=== PATIENT | female | born 1940 | race Caucasian/White ===

== ENCOUNTER 2025-06-11 10:23 | Emergency (ER) | payer MEDICARE, SELFPAY ==
--- NOTE | ~2025-06-11 | XR_ITS ---
EXAMINATION: XR WRIST, RIGHT CLINICAL INFORMATION: fall, ecchymosis COMPARISON: None available. TECHNIQUE: PA, lateral, and oblique views of the right wrist. FINDINGS: There is subtle cortical buckling along the medial metaphysis of the radius/radial styloid, questionable for nondisplaced fracture. 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 There is diffuse chondrocalcinosis within the wrist and TFCC. Severe osteoarthrosis of the STT joints. Moderate osteoarthrosis of the first CMC joint. There is diffuse soft tissue swelling around the wrist. XR/XR wrist RT min 3V IMPRESSION: 1. Findings suspicious but not definitive for a distal radial metaphyseal fracture. A CT may be of benefit to definitively exclude. 2. Chondrocalcinosis and arthritic changes in the wrist as detailed. 3. Diffuse soft tissue swelling. Electronically signed by: Akash Bird MD 06/11/2025 12:31 PM [facility]
--- NOTE | ~2025-06-11 | CT_ITS ---
EXAMINATION: CT CERVICAL SPINE WITHOUT CONTRAST CLINICAL INFORMATION: Fall COMPARISON: None available. TECHNIQUE: Axial imaging was performed from the base of the skull through T2 without IV contrast. Coronal and sagittal reformatted images were generated from the original axial data set. ALARA: The examination used one or more of the following radiation dose reduction techniques: Automated exposure control, iterative reconstruction, and/or adjustment of mA and/or KV. FINDINGS: Paraseptal bleb with a 7 x 11 mm soft tissue nodule is noted in the posterior right apex. There is no prevertebral edema. There is faint calcific density in the cruciate ligament dens consistent with chondrocalcinosis. No fracture lines are identified. C2-C3: Disc bulge C3-C4: There is mild disc space narrowing and disc bulge with uncovertebral and facet osteophytes, more pronounced on the left. C4-C5: There is moderate loss of disc height with uncovertebral and facet osteophytes, more pronounced on the left. C5-C6: There is grade 1 anterolisthesis with mild disc space narrowing. There are uncovertebral and facet osteophytes are more advanced on the left. C6-7: There is subtle anterolisthesis with mild disc space narrowing. There are uncovertebral and facet osteophytes more pronounced on the left. C7-T1: There is grade 1 anterolisthesis and mild disc space narrowing. There are uncovertebral and facet osteophytes. CT/CT cervical spine wo IV con IMPRESSION: Paraseptal bleb with adjacent 7 x 11 mm soft tissue nodule in the posterior right apex of the lung. Fleischner Society recommendation states CT chest without contrast in 3 month, PET/CT, or tissue sampling. Given the nodule is adjacent to a bleb, could represent scarring. Also, the entire lung has not been imaged, only the lung apexes. The best next step would likely be follow-up CT chest without contrast within 3 months to determine if there are any other changes. No acute fracture. Degenerative disc disease and facet osteoarthritis. Electronically signed by: Raulito Salazar MD 06/11/2025 11:58 AM EST
--- NOTE | ~2025-06-11 | XR_ITS ---
EXAMINATION: XR LUMBOSACRAL SPINE CLINICAL INFORMATION: fall COMPARISON: None available. TECHNIQUE: AP and lateral views FINDINGS: Levoconvex rotoscoliosis apex at L3. Multilevel marginal osteophyte formation and endplate sclerosis with decreased intervertebral disc height pronounced at L4-5. Superior endplate compression deformity likely old representing 20% volume loss at L2 and L3 vertebra. Osteopenia versus the process. No acute cortical disruption or gross malalignment. Vascular calcifications. XR/XR lumbar spine 2-3V IMPRESSION: Multilevel thoracolumbar spondylosis and levoconvex rotoscoliosis apex at L3 without acute fracture or listhesis. Electronically signed by: Kan Wilcox MD 06/11/2025 12:34 PM [facility]
--- NOTE | ~2025-06-11 | XR_ITS ---
EXAMINATION: XR HAND, RIGHT CLINICAL INFORMATION: ecchymosis/fall. fracture COMPARISON: None available. TECHNIQUE: PA, lateral, and oblique views of the right hand. FINDINGS: There is central erosion and mild narrowing of the DIP joint of the third digit. There is also mild joint space narrowing involving the second and fourth DIP joints. There are marginal osteophytes involving second, third, and fourth DIP joints. Small marginal osteophytes are present at the third, fourth, and fifth PIP joints. There is sclerosis and osteophytes involving the first MCP joint. There is sclerosis, joint space narrowing, and marginal sites involving the STT joint. There is chondrocalcinosis involving triangular fibrocartilage complex. No acute abnormality is identified. 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 No acute abnormality is evident. Electronically signed by: Raulito Salazar MD 06/11/2025 12:23 PM [facility]
--- NOTE | ~2025-06-11 | XR_ITS ---
EXAMINATION: XR SACRUM AND COCCYX CLINICAL INFORMATION: fall COMPARISON: None available. TECHNIQUE: AP and lateral sacrum and coccyx FINDINGS: There is mild to moderate narrowing and subchondral sclerosis involving the SI joints. There are marginal sites. There is moderate degenerative change in the pubic symphysis joint with chondrocalcinosis and marginal osteophytes. Severe degenerative changes are present in the lower lumbar spine with disc space narrowing, endplate sclerosis and osteophytes, as well as facet sclerosis and osteophytes. XR/XR sacrum coccyx min 2V IMPRESSION: Degenerative changes, no acute abnormality was detected. There is persistent high suspicion, consider cross-sectional imaging. Electronically signed by: Raulito Salazar MD 06/11/2025 12:26 PM [facility]
--- NOTE | ~2025-06-11 | CT_ITS ---
EXAMINATION: CT HEAD WITHOUT CONTRAST CLINICAL INFORMATION: fall COMPARISON: None available. TECHNIQUE: Contiguous axial imaging was performed from the skull base to vertex without intravenous administration of contrast. This CT examination was performed using dose optimization techniques as appropriate, variously including the following: *Automated exposure control *Adjustment of mA and/or kV according to patient size (this includes techniques or standardized protocols for targeted exams where dose is matched to indication/reason for exam; i.e. extremities or head) *Use of iterative reconstruction technique DLP: 706.60 mGy-cm FINDINGS: No acute cortical disruption in the bony calvarium or the included skull base. No acute intracranial hemorrhage, mass effect, midline shift, hydrocephalus or herniation. Yap-white matter differentiation is normal. Prominence of the extra-axial CSF spaces cerebral sulci and ventricles likely central volume loss. Posterior cranial fossa contents demonstrated no acute hemorrhage or mass effect. Normal position of the cerebellar tonsils. Sellar/suprasellar region demonstrated no gross masses. Poor pneumatization of the right mastoid air cells. Tympanic cavities are aerated. Pneumatized petrous apices, congenital. Nuchal subtle thickening in the paranasal sinuses without air-fluid levels. Calcified plaques in the cavernous supracavernous segments both ICAs and V4 segments of the vertebral arteries. CT/CT head/brain wo IV con IMPRESSION: No acute fracture, bony calvarium. No acute intracranial hemorrhage. Electronically signed by: Kan Wilcox MD 06/11/2025 11:54 AM [facility] [place], [place]
[2025-06-11 10:41] VITALS: BP 136/79; PULSE 90; RESP 18; TEMP 37; O2SAT 95; BMI 21.0
--- NOTE | 2025-06-11 10:46 | ED_ITS ---
HPI - General Adult General Chief complaint: Extremity Injury, Upper Stated complaint: Fell, R wrist inj Time Seen by Provider: 06/11/25 12:10 Source: patient and family (patient's daughter) Mode of arrival: ambulatory Limitations: no limitations History of Present Illness ED Provider: Dayanna Gilmore PA-C HPI narrative: Patient is an 84 year old assigned female at with no reported medical history presenting to the emergency department today with right wrist pain after a fall. Patient states that she slipped on the black ice and injured her right wrist. Patient denies any head strike or loss of consciousness with the incident. Patient denies any anti-coagulation use. Related Data Allergies Allergy/AdvReac Type Severity Reaction Status Date / Time No Known Allergies Allergy Verified 06/11/25 10:43 Review of Systems Constitutional: Constitutional: Reports as per HPI Eyes: Eyes: Reports as per HPI ENT: Reports as per HPI Cardiovascular: Cardiovascular: Reports as per HPI Respiratory: Respiratory: Reports as per HPI Gastrointestinal: Gastrointestinal: Reports as per HPI Genitourinary: Genitourinary: Reports as per HPI Musculoskeletal: Musculoskeletal: Reports as per HPI Integumentary/Breasts: Skin/Breast: Reports as per HPI Neurologic: Reports as per HPI Psychiatric: Psychiatric: Reports as per HPI Endocrine: Endocrine: Reports as per HPI Hematologic/Lymphatic: Hematologic/Lymphatic: Reports as per HPI Allergic/Immunologic: Allergic/Immunologic: Reports as per HPI PMF Past Medical History Attestation statement: The following information was validated with the patient. (all information validated with the patient's daughter) Source: old records reviewed, obtained from family (patient's daughter provided additional history and confirmed the history provided by the patient.) and nursing notes reviewed Social History Social History Smoked in Last 30 Days: No Use of substances other than those prescribed or required for medical reasons: No Advance Directives: Yes Advance Directives Information Provided: No Advance Directives on File: No Do you have a plan to hurt others: No Plan Physical Exam ED Vital Signs: Vital Signs - 24 hr 06/11/25 10:41 06/11/25 13:25 Temperature 98.6 F 98.6 F Pulse Rate 90 90 Respiratory Rate 18 18 Blood Pressure 136/79 136/79 Pulse Oximetry 95 95 Oxygen Delivery Method Room Air Room Air BMI result Body Mass Index 21.0 Const General: cooperative, no acute distress, alert and awake Nutritional Appearance: well nourished Orientation/consciousness: patient oriented x3 HENMT Head: Yes normal to inspection and Yes atraumatic Ears: hearing grossly normal bilaterally and external ears normal General nose exam: Normal external nose present, no nasal discharge noted and no epistaxis Face and sinus: Yes normal facial exam, No abrasion and No laceration Mouth: Normal oral and palatal mucosa present, no drooling and no muffled voice Eyes General: appearance normal, both eyes and all related structures Periorbital: periorbital findings normal Eyelids: Yes eyelids normal Conjunctivae: conjunctivae normal Pupils: Equal, round and reactive pupils present EOM: EOMs intact bilaterally Neck Neck: Yes normal visual inspection and Yes full ROM Resp Effort & Inspection: normal respiratory effort and able to speak in complete sentences Neuro General: patient oriented x3, moves all extremities and CN's II-XI intact bilaterally Cranial nerves: Yes Equal, round and reactive pupils present Cognition (Neuro): normal cognition Extrem Other: decreased ROM of the right wrist secondary to pain swelling present to the right wrist dorsal bruising present to the right wrist General: Yes capillary refill normal Psych Appearance: grossly normal Mental Status: mental status grossly normal Affect: normal affect Attitude: cooperative Thought process: Normal thought process present Thought content: Normal thought content present Insight: Good insight present (Psych) Course Course Course Narrative: RME: 84-year-old female presents to ED for right wrist pain. Patient states this morning while walking she slipped on ice and fell onto her right wrist and buttock. Patient denies hitting head loss of consciousness. Physical exam positive for right wrist ecchymosis but patient is able to move wrist. Sent for x-ray of the back, wrist hand, and head CT scan. Procedures Orthopedic Splinting/Casting R wrist fracture: Side: right Upper Extremity Injury Location: wrist Upper Extremity Immobilizer: sling/shoulder immobilizer and sugar tong splint Medical Decision Making Medical Decision Making MDM Narrative: Patient is an 84 year old assigned female at with no reported medical history presenting to the emergency department today with right wrist pain after a fall. Patient's physical exam was as noted in the physical exam portion of this note. Patient's right hand x-ray showed no acute process. Patient's right wrist x-ray showed evidence of a distal radial fracture. Patient's lumbar spine x-ray ordered by the provider in triage showed no acute process. Patient's sacrum + coccyx x-ray ordered by the provider in triage showed no acute process. Patient's head CT ordered by the provider in triage showed no acute process. Patient's c-spine CT ordered by the provider in triage showed an incidental finding of a paraseptal bleb with adjacent 7x11mm soft tissue nodule in the posterior right apex of the lung for which the radiologist recommended a CT scan within the next 3 months. I explained my physical exam findings as well as all test results to the patient and the patient's daughter. I answered all questions asked by the patient and the patient's daughter. Patient's right wrist was placed in a sugar tong splint, without incident. Patient's PMS was intact prior to and after splint placement. Patient's right up per extremity was placed in a sling, without incident. Patient's PMS was intact prior to and after sling placement. I stressed the importance of the patient taking her medication as directed (either prescribed or as the over the counter packaging recommends). I stressed the importance of the patient following up with her primary care provider (especially about the incidental finding in her lung) as well as the orthopedic team for her wrist fracture. I stressed the importance of the patient returning to the emergency department immediately if her symptoms were to worsen or if she were to develop any dizziness, shortness of breath, difficulty breathing, chest pain, blurry vision, loss of vision, nausea, vomiting, abdominal pain, fever, chills, back pain, or any other complaints. Patient and the patient's daughter verbalized agreement and understanding with this treatment plan and discharge. Differential Diagnosis Differential Diagnoses: The differential diagnosis associated with the presentation includes Right wrist fracture Fall Incidental lung finding Admission/Observation Consideration of admission/observation: Escalation of care including admission/observation considered Patient would have been admitted to the hospital had her work up had any findings where hospital admission was appropriate and her clinical presentation warranted hospital admission. Independent Interpretation I performed an independent interpretation of an: Plain X-Ray and CT Scan Interpretation: My interpretation is in agreement with the radiologist's impression of these imaging studies. Report Number: [id number]: Total DLP = 0.00 mGy-cm Reason for Exam: fall EXAMINATION: CT CERVICAL SPINE WITHOUT CONTRAST CLINICAL INFORMATION: Fall COMPARISON: None available. TECHNIQUE: Axial imaging was performed from the base of the skull through T2 without IV contrast. Coronal and sagittal reformatted images were generated from the original axial data set. ALARA: The examination used one or more of the following radiation dose reduction techniques: Automated exposure control, iterative reconstruction, and/or adjustment of mA and/or KV. FINDINGS: Paraseptal bleb with a 7 x 11 mm soft tissue nodule is noted in the posterior right apex. There is no prevertebral edema. There is faint calcific density in the cruciate ligament dens consistent with chondrocalcinosis. No fracture lines are identified. C2-C3: Disc bulge C3-C4: There is mild disc space narrowing and disc bulge with uncovertebral and facet osteophytes, more pronounced on the left. C4-C5: There is moderate loss of disc height with uncovertebral and facet osteophytes, more pronounced on the left. C5-C6: There is grade 1 anterolisthesis with mild disc space narrowing. There are uncovertebral and facet osteophytes are more advanced on the left. C6-7: There is subtle anterolisthesis with mild disc space narrowing. There are uncovertebral and facet osteophytes more pronounced on the left. C7-T1: There is grade 1 anterolisthesis and mild disc space narrowing. There are uncovertebral and facet osteophytes. CT/CT cervical spine wo IV con IMPRESSION: Paraseptal bleb with adjacent 7 x 11 mm soft tissue nodule in the posterior right apex of the lung. Fleischner Society recommendation states CT chest without contrast in 3 month, PET/CT, or tissue sampling. Given the nodule is adjacent to a bleb, could represent scarring. Also, the entire lung has not been imaged, only the lung apexes. The best next step would likely be follow-up CT chest without contrast within 3 months to determine if there are any other changes. No acute fracture. Degenerative disc disease and facet osteoarthritis. Electronically signed by: Raulito Salazar MD 06/11/2025 11:58 AM EST RP Dictated By: Raulito Salazar MD Signed By: Electronically signed by Raulito Salazar MD 06/11/25 1158 Reason for Exam: fall EXAMINATION: CT HEAD WITHOUT CONTRAST CLINICAL INFORMATION: fall COMPARISON: None available. TECHNIQUE: Contiguous axial imaging was performed from the skull base to vertex without intravenous administration of contrast. This CT examination was performed using dose optimization techniques as appropriate, variously including the following: *Automated exposure control *Adjustment of mA and/or kV according to patient size (this includes techniques or standardized protocols for targeted exams where dose is matched to indication/reason for exam; i.e. extremities or head) *Use of iterative reconstruction technique DLP: 706.60 mGy-cm FINDINGS: No acute cortical disruption in the bony calvarium or the included skull base. No acute intracranial hemorrhage, mass effect, midline shift, hydrocephalus or herniation. Yap-white matter differentiation is normal. Prominence of the extra-axial CSF spaces cerebral sulci and ventricles likely central volume loss. Posterior cranial fossa contents demonstrated no acute hemorrhage or mass effect. Normal position of the cerebellar tonsils. Sellar/suprasellar region demonstrated no gross masses. Poor pneumatization of the right mastoid air cells. Tympanic cavities are aerated. Pneumatized petrous apices, congenital. Nuchal subtle thickening in the paranasal sinuses without air-fluid levels. Calcified plaques in the cavernous supracavernous segments both ICAs and V4 segments of the vertebral arteries. CT/CT head/brain wo IV con IMPRESSION: No acute fracture, bony calvarium. No acute intracranial hemorrhage. Electronically signed by: Kan Wilcox MD 06/11/2025 11:54 AM EST RP Dictated By: Kan Hayes MD Signed By: Electronically signed by Kan Garvey MD 06/11/25 1154 Reason for Exam: fall EXAMINATION: XR WRIST, RIGHT CLINICAL INFORMATION: fall, ecchymosis COMPARISON: None available. TECHNIQUE: PA, lateral, and oblique views of the right wrist. FINDINGS: There is subtle cortical buckling along the medial metaphysis of the rad ius/radial styloid, questionable for nondisplaced fracture. 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 There is diffuse chondrocalcinosis within the wrist and TFCC. Severe osteoarthrosis of the STT joints. Moderate osteoarthrosis of the first CMC joint. There is diffuse soft tissue swelling around the wrist. XR/XR wrist RT min 3V IMPRESSION: 1. Findings suspicious but not definitive for a distal radial metaphyseal fracture. A CT may be of benefit to definitively exclude. 2. Chondrocalcinosis and arthritic changes in the wrist as detailed. 3. Diffuse soft tissue swelling. Electronically signed by: Akash Bird MD 06/11/2025 12:31 PM [facility] Dictated By: Akash Bird MD Signed By: Electronically signed by Akash Bird MD 06/11/25 1231 Reason for Exam: fall EXAMINATION: XR LUMBOSACRAL SPINE CLINICAL INFORMATION: fall COMPARISON: None available. TECHNIQUE: AP and lateral views FINDINGS: Levoconvex rotoscoliosis apex at L3. Multilevel marginal osteophyte formation and endplate sclerosis with decreased intervertebral disc height pronounced at L4-5. Superior endplate compression deformity likely old representing 20% volume loss at L2 and L3 vertebra. Osteopenia versus the process. No acute cortical disruption or gross malalignment. Vascular calcifications. XR/XR lumbar spine 2-3V IMPRESSION: Multilevel thoracolumbar spondylosis and levoconvex rotoscoliosis apex at L3 without acute fracture or listhesis. Electronically signed by: Kan Wilcox MD 06/11/2025 12:34 PM EST RP Dictated By: Kan Hayes MD Signed By: Electronically signed by Kan Garvey MD 06/11/25 1234 Reason for Exam: fall EXAMINATION: XR SACRUM AND COCCYX CLINICAL INFORMATION: fall COMPARISON: None available. TECHNIQUE: AP and lateral sacrum and coccyx FINDINGS: There is mild to moderate narrowing and subchondral sclerosis involving the SI joints. There are marginal sites. There is moderate degenerative change in the pubic symphysis joint with chondrocalcinosis and marginal osteophytes. Severe degenerative changes are present in the lower lumbar spine with disc space narrowing, endplate sclerosis and osteophytes, as well as facet sclerosis and osteophytes. XR/XR sacrum coccyx min 2V IMPRESSION: Degenerative changes, no acute abnormality was detected. There is persistent high suspicion, consider cross-sectional imaging. Electronically signed by: Raulito Salazar MD 06/11/2025 12:26 PM EST RP Dictated By: Raulito Salazar MD Signed By: Electronically signed by Raulito Salazar MD 06/11/25 1226 Reason for Exam: ecchymosis/fall. fracture EXAMINATION: XR HAND, RIGHT CLINICAL INFORMATION: ecchymosis/fall. fracture COMPARISON: None available. TECHNIQUE: PA, lateral, and oblique views of the right hand. FINDINGS: There is central erosion and mild narrowing of the DIP joint of the third digit. There is also mild joint space narrowing involving the second and fourth DIP joints. There are marginal osteophytes involving second, third, and fourth DIP joints. Small marginal osteophytes are present at the third, fourth, and fifth PIP joints. There is sclerosis and osteophytes involving the first MCP joint. There is sclerosis, joint space narrowing, and marginal sites involving the STT joint. There is chondrocalcinosis involving triangular fibrocartilage complex. No acute abnormality is identified. 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 No acute abnormality is evident. Electronically signed by: Raulito Salazar MD 06/11/2025 12:23 PM [facility] Dictated By: Raulito Salazar MD Signed By: Electronically signed by Raulito Salazar MD 06/11/25 1223 Radiology Impression Discussion of test interpretation with radiology: I have reviewed the radiologist's reading. Independent Historian Clinical information obtained from an independent historian. History obtained from or confirmed by: Other (patient's daughter provided additional history and confirmed the history provided by the patient. ) Discharge Plan Discharge Clinical Impression: Bleb, lung Fracture of wrist Qualifiers: Encounter type: initial encounter Fracture type: closed Laterality: right Qualified Code(s): S62.101A - Fracture of unspecified carpal bone, right wrist, initial encounter for closed fracture Patient Disposition: Home, Self-Care Instructions: Wrist Fracture in Adults (ED) Additional Instructions: Do NOT stick anything down / into your splint. Do NOT get your splint wet. Do NOT remove your splint. If you have any change in sensation, movement, or color of your right fingers - you may loosen the outer WINNIE wraps. If you find yourself loosening the WINNIE wraps to the point of seeing the white splint material underneath - STOP and proceed to your closest Emergency Department, immediately. Follow up with your primary care provider and the orthopedic team. ONLY wear your sling when ambulating and be sure every 1 hour for 10 minutes you move the right SHOULDER ONLY to avoid a frozen shoulder. Your imaging today showed an incidental finding of: Paraseptal bleb with adjacent 7 x 11 mm soft tissue nodule in the posterior right apex of the lung. The radiologist recommends getting a CT chest without contrast within the next 3 months. You MUST follow up with your primary care provider about this finding. Return to the emergency department immediately if your symptoms worsen or if you develop any numbness, tingling, dizziness, shortness of breath, difficulty breathing, chest pain, blurry vision, loss of vision, nausea, vomiting, abdominal pain, fever, chills, back pain, or any other complaints. Please see the information below about our Patient Portal. If you are not yet enrolled in the [facility] Patient Portal, you will receive an enrollment email invitation following your visit to any [facility] [place] care setting. You may also self-enroll in the Patient Portal by visiting our website: [email or web address] The following information is required to access the Patient Portal: - Your [facility] Medical Record Number - Your personal home email address (must match what is in your electronic medical record, Registration staff can assist with this) - Name - Date of Capabilities of the Patient Portal: - Message some providers - View upcoming appointments - Access your health summary, medical history, and visit history - View current conditions and allergies - View procedure and lab results - View your medications, including guidelines, side effects, and precautions - Complete pre-appointment questionnaires requested by your provider - Ready summary reports of your office visits and procedures To access the Patient Portal Mobile [employer], follow these directions: - Search [facility] in the [employer] Store or Google Play Store - Download the [place] - Search for [facility] - Enter your login/password Referrals: [facility] [Provider Group] Referral Note: Call to establish and follow up with the orthopedic team about your broken right wrist. Saira Baoteng MD [Primary Care Provider, Medical] Interventions: ED Discharge Assessment Last Done: 06/11/25 13:25 Discharge Date/Time: 06/11/25 13:42 Print Language: Tuvaluan
[2025-06-11 13:25] VITALS: BP 136/79; PULSE 90; RESP 18; TEMP 37; O2SAT 95
--- NOTE | 2025-06-11 13:41 | PC.NURSE ---
splint applied to RUE by provider. pt tolerated well.
== END 2025-06-11 13:42 | disposition home or self-care (01) ==
PROVIDERS: Emergency Provider Emergency Medicine; PCP Internal Medicine
DX: S62.101A Fracture of unspecified carpal bone, right wrist, initial encounter for closed fracture (principal); J43.9 Emphysema, unspecified; M25.531 Pain in right wrist; M54.2 Cervicalgia; R51.9 Headache, unspecified; M53.3 Sacrococcygeal disorders, not elsewhere classified; X58.XXXA Exposure to other specified factors, initial encounter; W00.0XXA Fall on same level due to ice and snow, initial encounter; Y93.29 Activity, other involving ice and snow; Y92.9 Unspecified place or not applicable; Y99.8 Other external cause status
CPT/HCPCS: 29125; 70450; 72100; 72125; 72220; 73110; 73130; 99284

== ENCOUNTER → 2025-06-11 10:44 | Outpatient (BNV) | payer MEDICARE, SELFPAY | PROVIDERS: Visit Provider Radiology Diagnostic Radiology | DX: M47.815 Spondylosis without myelopathy or radiculopathy, thoracolumbar region (principal); M41.86 Other forms of scoliosis, lumbar region; Z04.3 Encounter for examination and observation following other accident | CPT/HCPCS: 70450; 72100; 73110 ==

== ENCOUNTER 2025-06-19 08:29 | Outpatient (REF) | payer MEDICARE, SELFPAY ==
--- NOTE | ~2025-06-19 | XR_ITS ---
EXAMINATION: XR WRIST, RIGHT CLINICAL INFORMATION: M25.531 - Pain in right wrist COMPARISON: X-ray 08/11/2024 TECHNIQUE: PA, lateral, and oblique views of the right wrist. FINDINGS: Bone mineralization is decreased. Redemonstrated is subtle cortical buckling along the lateral metaphysis of the radius/radial styloid, along with subtle curvilinear sclerosis in the metaphysis extending to the epiphysis. These findings could represent sequela for undisplaced fracture. Redemonstrated CPPD calcification in the region of the TFCC. Redemonstrated severe STT arthritis, moderate first CMC arthritis. Intercarpal arthritis present. Mild soft tissue swelling.. XR/XR wrist RT min 3V IMPRESSION: 1. Findings suspicious for an undisplaced fracture of the distal radius. 2. Osteoarthritis as above. Electronically signed by: Spencer Holland MD 06/19/2025 04:15 PM [facility]
--- OUTSIDE RECORDS SUMMARY | 2025-06-20 08:53 | XMS_ITS | Patient Health Record ---
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 (107816326) Lichen sclerosus et atrophicus (L90.0) Active confirmed Plan Of Treatment No Information Insurance Providers Payer Name Payer Address Payer Phone Subscriber Number Group Number Insured Name Patient Relationship to Insured Coverage Start Date Coverage End Date MEDICARE [address] [facility], [place] [id number] ASHOK PARRA Self - patient is the insured MEDEX [address] [place] [address] [id number] ASHOK PARRA Self - patient is the insured Medical (General) History Medical History History ICD Code Pruritus vulvae L29.2 Lichen sclerosus et atrophicus L90.0 Surgical History Surgery Date(Month/Year) Appendectomy 1943 C/Section 1966 Lithotripsy 2004 Cataract 04/2020 Hospitalization History Reason Date(Month/Year) 1 C/S See Surgical History
== END 2025-06-19 08:30 | disposition home or self-care (01) ==
LOC: HO.HOSX 08:29
PROVIDERS: Visit Provider Orthopaedic Surgery
DX: S52.571D Other intraarticular fracture of lower end of right radius, subsequent encounter for closed fracture with routine healing (principal); W00.0XXD Fall on same level due to ice and snow, subsequent encounter
CPT/HCPCS: 25600; 73110; 99202

== ENCOUNTER 2025-06-19 09:56 | Outpatient (AMB) | payer MEDICARE, SELFPAY ==
[2025-06-19 10:07] VITALS: BMI 21.0
--- NOTE | 2025-06-19 10:07 | A.OFFVIS_ITS ---
Vital Signs 06/19/25 10:07 Height 5 ft 6 in Weight 130 lb BMI 21.0 Intake Visit Reasons: F/C RT distal Radius fx , FC-Distal radius fracture Intake Note: Trice 84 yr old right hand dominant female presents today for a fracture care visit for her right wrist fracture from DOI 06/11/25. Patient states that she slipped on the black ice and injured her right wrist. Patient was seen at [facility] where xrays were taken, a fracture was confirmed and patient was splinted. Today splint was removed and xrays were taken. Patient states she has no pain , numbness or tingling in her hand or fingers. Allergies No Known Allergies Allergy (Verified 06/19/25 10:35) HPI HPI F/C RT distal Radius fx : Details: Trice is an 84 year old right hand dominant woman who presents for a right distal radius fracture. She fell on ice, DOI: 06/11/25, and was seen in the ED & splinted. She says she is doing well overall. She has some pain in her wrist but this is tolerable. PFSH Surgical History (Updated 06/19/25 @ 10:36 by JAMAL Montana) Hx of cataract surgery Social History (Updated 06/19/25 @ 10:36 by JAMAL Montana) Current occupational status: retired Current occupation: rt hand Review of Systems Const All systems reviewed & are unremarkable except as noted in HPI and below Physical Exam Vital Signs: BMI result Body Mass Index 21.0 Const General: cooperative, healthy appearing and no acute distress Orientation/consciousness: patient oriented x3 HEENT Head: Yes normocephalic and Yes atraumatic Eyes EOM: EOMs intact bilaterally Resp Effort & Inspection: normal respiratory effort and able to speak in complete sentences Cardio Jugular venous distension: no JVD Skin General skin exam: turgor normal Rashes: no rashes Neuro General: patient oriented x3 Extrem Other: Evaluation of Right Upper Extremity: The patient is alert, oriented, and in no acute distress Neuro: Median, Ulnar, Radial nerves motor and sensory intact and sensation is normal to the tips of all digits Vascular: Cap refill brisk ROM: She can make a fist and extend all her digits Skin: No lacerations or abrasions or evidence of open injury General: No Erythema or evidence of infection. Ecchymosis about the wrist Most tender over the distal radius No tenderness over the distal ulna or DRUJ DRUJ stable on exam No snuffbox or scaphoid tubercle tenderness Radiographs: 3 views of the Right wrist were taken and viewed by me today in clinic. They show an intra-articular distal radius fracture, minimally displaced but overall satisfactory alignment. Psych Appearance: grossly normal Affect: normal affect Attitude: cooperative Office Procedures AMB Fracture Care Details: Still radius fracture 77046 Fracture Billing Code: Fracture Billing Code Assessment & Plan Assessment & Plan (1) Fracture of right distal radius: Code(s): S52.501A - Unspecified fracture of the lower end of right radius, initial encounter for closed fracture Category: Medical Plan Assessment & Plan: 1. Right distal radius fracture, minimally displaced From a fall, DOI: 05/11/25 I educated her about this condition I discussed operative and non-operative treatment options We will manage this non-operatively in a cast, and she is in agreement She was placed in a short arm cast, to be worn for the next 3 weeks She will work on gentle finger ROM exercises while in her cast I discussed activity modifications, she is to lift nothing heavier than a cellphone for the next 5 weeks. They should also avoid any heavy impact activities, falls, or sports activities for the next 8 weeks She will follow up in 3 weeks, with X-rays, 3V R wrist, OOP. Anticipate placement in velcro wrist splint Scribed for Kimmie Lamar MD by Preston Nicole clinical laboratory medical director, on 06/19/25 at 10:49 AM, EST. Orders: Orders XR wrist RT min 3V Today M25.531 - Pain in right wrist Coding Level of Care Code New Pt Level 4 (93108) Diagnoses Fracture of right distal radius S52.501A CPT Codes Fracture Care - Fracture Billing Code: Fracture Billing Code ([id number])
--- OUTSIDE RECORDS SUMMARY | 2025-06-19 11:54 | XMS_ITS | Patient Health Record ---
Author Organization Total [facility] Address [address] [place] [address] Care Team Providers Care Dispute Resolution Analyst Name Role Phone HO BARRAGAN Primary Care Provider Unavail able Scarlett Rush Unavailable [phone] Allergies No Known Allergies Reason For Referral No Information Medications Medication SIG (Take, Route, Frequency, Duration) Notes Start Date End Date Status Caltrate 600+D Activ e Centrum Silver - as directed Orally Active Clobetasol Propionate 0.05 % 1 application Externally Twice a day, morning and night; Duration: 30 days 04/03/2021 Active Social History Tobacco Use: Social History Observation Description Date Details (start date - stop date) Former Smoker NA - NA Tobacco Use/Smoking Question Answer Notes Are you a former smoker Alcohol Screen (Audit-C) Question Answer Notes Did you have a drink contain ing alcohol in the past year? Yes How often did you have a dri nk containing alcohol in the past year? 4 or more times a week (4 points) How many drinks did you have on a typical day when you were drinking in the past year? 1 or 2 drinks (0 point) Points 4 Interpretation Positive Sexual History Question Answer Notes Had sex in the past 12 months (vaginal, oral, or anal)? 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) Lichen sclerosus et atrophicus (L90.0) Active confirmed Plan Of Treatment No Information Insurance Providers Payer Name Payer Address Payer Phone Subscriber Number Group Number Insured Name Patient Relationship to Insured Coverage Start Date Coverage End Date MEDICARE [address] [facility], [place] [id number] [phone] [id number] ASHOK PARRA Self - patient is the insured MEDEX [address] [place] [address] [phone] [id number] ASHOK PARRA Self - patient is the insured Medical (General) History Medical History History ICD Code Pruritus vulvae L29.2 Lichen sclerosus et atrophicus L90.0 Surgical History Surgery Date(Month/Year) Appendectomy 1943 C/Section 1966 Lithotripsy 2004 Cataract 04/2020 Hospitalization History Reason Date(Month/Year) 1 C/S See Surgical History
== END 2025-06-19 11:37 | disposition home or self-care (01) ==
LOC: HO.HOS 09:57
PROVIDERS: PCP Internal Medicine; Visit Provider Orthopaedic Surgery
DX: S52.501A Unspecified fracture of the lower end of right radius, initial encounter for closed fracture (principal)
CPT/HCPCS: 25600; 99204

== ENCOUNTER → 2025-06-19 09:58 | Outpatient (BNV) | payer MEDICARE, SELFPAY | PROVIDERS: Visit Provider Radiology Diagnostic Ultrasound | DX: M19.031 Primary osteoarthritis, right wrist (principal) | CPT/HCPCS: 73110 ==

== ENCOUNTER 2025-07-10 11:42 | Outpatient (REF) | payer MEDICARE, SELFPAY ==
--- NOTE | ~2025-07-10 | XR_ITS ---
EXAMINATION: XR WRIST 3 OR MORE VIEWS RIGHT HISTORY: M25.531 - Pain in right wrist COMPARISON: Comparison is made with the prior examination dated 06/19/2025. FINDINGS: Three views of the right wrist are submitted. The bones are osteopenic. Again seen is a band of sclerosis across the distal radial metaphysis, compatible with a healing fracture. There is moderate to severe degenerative change of the radial aspect of the carpus. There is chondrocalcinosis. XR/XR wrist RT min 3V IMPRESSION: Healing fracture of the distal radial metaphysis. Electronically signed by: Ronn Goodwin MD 07/10/2025 01:48 PM [facility]
--- OUTSIDE RECORDS SUMMARY | 2025-07-12 15:26 | XMS_ITS | Patient Health Record ---
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 (915130301) Lichen sclerosus et atrophicus (L90.0) Active confirmed Plan Of Treatment No Information Insurance Providers Payer Name Payer Address Payer Phone Subscriber Number Group Number Insured Name Patient Relationship to Insured Coverage Start Date Coverage End Date MEDICARE [address] [facility], [place] [id number] ASHOK PARRA Self - patient is the insured MEDEX [address] [place] [address] [phone] [id number] ASHOK PARRA Self - patient is the insured Medical (General) History Medical History History ICD Code Pruritus vulvae L29.2 Lichen sclerosus et atrophicus L90.0 Surgical History Surgery Date(Month/Year) Appendectomy 1943 C/Section 1966 Lithotripsy 2004 Cataract 04/2020 Hospitalization History Reason Date(Month/Year) 1 C/S See Surgical History
== END 2025-07-10 11:43 | disposition home or self-care (01) ==
LOC: HO.HOSX 11:42
PROVIDERS: Visit Provider Orthopaedic Surgery
DX: S52.571D Other intraarticular fracture of lower end of right radius, subsequent encounter for closed fracture with routine healing (principal); W00.9XXD Unspecified fall due to ice and snow, subsequent encounter
CPT/HCPCS: 73110; 99212

== ENCOUNTER 2025-07-10 13:25 | Outpatient (AMB) | payer MEDICARE, SELFPAY ==
[2025-07-10 13:47] VITALS: BMI 21.0
--- NOTE | 2025-07-10 13:47 | MHC.OFFVIS ---
Vital Signs 07/10/25 13:47 Height 5 ft 6 in Weight 130 lb BMI 21.0 Intake Visit Reasons: OV- Distal radius fracture w xray/ cast off Intake Note: Trice 84 yr old right hand dominant female presents today for a fracture care visit for her right wrist fracture from DOI 06/11/25. Cast removefd and xrays updated in office, patient states she has sorness and aches in her wrist. Denies numbness or tingling. Allergies No Known Allergies Allergy (Verified 07/10/25 13:48) HPI HPI OV- Distal radius fracture w xray/ cast off: Details: Trice is an 84 year old right hand dominant woman who returns for a right distal radius fracture. She fell on ice, DOI: 06/11/25, and was seen in the ED & splinted. She says she is doing well overall. She has some pain in her wrist but this is tolerable. PFSH Surgical History Hx of cataract surgery Social History Current occupational status: retired Current occupation: rt hand Review of Systems Const All systems reviewed & are unremarkable except as noted in HPI and below Physical Exam Vital Signs: BMI result Body Mass Index 21.0 Const General: no acute distress and alert Orientation/consciousness: patient oriented x3 Neuro General: patient oriented x3 Extrem Other: Evaluation of Right Upper Extremity: The patient is alert, oriented, and in no acute distress Neuro: Median, Ulnar, Radial nerves motor and sensory intact and sensation is normal to the tips of all digits Vascular: Cap refill brisk ROM: She can make a fist and extend all her digits Fracture site non tender Swelling mostly resolved Radiographs: 3 views of the Right wrist were taken and viewed by me today in clinic. They show an intra-articular distal radius fracture, minimally displaced but overall satisfactory alignment and some evidence of interval bony healing. Psych Appearance: grossly normal Affect: normal affect Attitude: cooperative Assessment & Plan Assessment & Plan (1) Fracture of right distal radius: Code(s): S52.501A - Unspecified fracture of the lower end of right radius, initial encounter for closed fracture Category: Medical Plan Assessment & Plan: 1. Right distal radius fracture, minimally displaced From a fall, DOI: 06/11/25 I educated her about this condition This was managed in a cast She was fitted for a velcro wrist splint, to be worn with daily activities for the next 4 weeks. She will remove this at home at rest She will work on ROM exercises at home I discussed activity modifications, she is to lift lightweight objects and slowly increase to medium-weight objects over the next 4-6 weeks They should also avoid any heavy impact activities, falls, or sports activities for the next 4 weeks She will follow up in 4 weeks, with X-rays, 3V R wrist, OOP. Consider OT hand therapy referral at her next appointment. Scribed for Kimmie Lamar MD by Preston Nicole, medical assistant supervisor, on 07/10/25 at 2:25 PM, EST. Orders: Orders XR wrist RT min 3V Today M25.531 - Pain in right wrist Coding Level of Care Code Global (22222) Diagnoses Fracture of right distal radius S52.501A
--- OUTSIDE RECORDS SUMMARY | 2025-07-10 17:29 | XMS_ITS | Patient Health Record ---
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 (749561616) Lichen sclerosus et atrophicus (L90.0) Active confirmed Plan Of Treatment No Information Insurance Providers Payer Name Payer Address Payer Phone Subscriber Number Group Number Insured Name Patient Relationship to Insured Coverage Start Date Coverage End Date MEDICARE [address] [facility], [place] [id number] ASHOK PARRA Self - patient is the insured MEDEX [address] [place] [address] [phone] [id number] ASHOK PARRA Self - patient is the insured Medical (General) History Medical History History ICD Code Pruritus vulvae L29.2 Lichen sclerosus et atrophicus L90.0 Surgical History Surgery Date(Month/Year) Appendectomy 1943 C/Section 1966 Lithotripsy 2004 Cataract 04/2020 Hospitalization History Reason Date(Month/Year) 1 C/S See Surgical History
== END 2025-07-10 14:49 | disposition home or self-care (01) ==
LOC: HO.HOS 13:26
PROVIDERS: PCP Internal Medicine; Visit Provider Orthopaedic Surgery
DX: S52.501A Unspecified fracture of the lower end of right radius, initial encounter for closed fracture (principal)
CPT/HCPCS: 99024

== ENCOUNTER → 2025-07-10 13:27 | Outpatient (BNV) | payer MEDICARE, SELFPAY | PROVIDERS: Visit Provider Radiology Diagnostic Radiology | DX: S52.501D Unspecified fracture of the lower end of right radius, subsequent encounter for closed fracture with routine healing (principal) | CPT/HCPCS: 73110 ==